=== PATIENT | female | born 1975 | race Hispanic/Latino ===

== ENCOUNTER 2018-03-04 22:42 | Emergency (ER) | payer OTHER ==
[~2018-03-04] VITALS: Ht 160 cm; Wt 88.9 kg
[2018-03-04] MEDS ORDERED: ALBUTEROL SULF 0.083% NEB SOLN 3 ML NEB NEB STA (23:13)
[2018-03-04] MEDS ORDERED: PREDNISONE 20 MG TAB PO SCH (23:15)
[2018-03-04] MEDS ORDERED: IPRATROPIUM BROMIDE 0.02% 2.5 ML NEB NEB ONE (23:15)
[2018-03-04] MEDS ORDERED: IPRATROPIUM BROMIDE 0.02% 2.5 ML NEB ONE (23:17)
[2018-03-04] MEDS ORDERED: ALBUTEROL SULF 0.083% NEB SOLN 3 ML NEB ONE (23:17)
[2018-03-04] MEDS ORDERED: PREDNISONE 20 MG TAB PO ONE (23:30)
== END 2018-03-05 00:26 | disposition home or self-care (01) ==
LOC: ER 22:42
DX: R06.00 Dyspnea, unspecified (principal); J20.9 Acute bronchitis, unspecified; J45.31 Mild persistent asthma with (acute) exacerbation
CPT/HCPCS: 94640; 99283

== ENCOUNTER 2021-12-09 17:48 | Emergency (ER) | payer OTHER ==
[~2021-12-09] VITALS: Ht 160 cm; Wt 97.5 kg
[~2021-12-09 17:48] MED LIST: ALBUTEROL0.63 MG/3 NEB; ALBUTEROL2.5 MG/3 M NEB; PREDNISONE20 MG PO; PROAIR HFA INH8.5 GM IH; ZITHROMAX1 GM PO
[2021-12-09] MEDS ORDERED: ALBUTEROL/IPRATROPIUM 3 ML NEB NEB NR (18:15)
[2021-12-09] MEDS ORDERED: METHYLPREDNISOLONE SOD SUCC 125 MG/2ML VIAL IM NR (18:15)
[2021-12-09 18:58] VITALS: BP 111/56
== END 2021-12-09 19:06 | disposition home or self-care (01) ==
LOC: UNMERGE 17:55 → MERGE 17:55 → ER 17:55
DX: J45.909 Unspecified asthma, uncomplicated (principal); R06.02 Shortness of breath; Z86.16 Personal history of COVID-19
CPT/HCPCS: 94799; 99282; J2930

== ENCOUNTER 2022-03-19 22:35 | Emergency (ER) | payer OTHER ==
[~2022-03-19] VITALS: Ht 160 cm; Wt 97.5 kg
[2022-03-20] MEDS ORDERED: PREDNISONE20 MG PO (00:19)
[2022-03-20] MEDS ORDERED: AZITHROMYCIN250 MG PO (00:19)
[2022-03-20] MEDS ORDERED: VENTOLIN HFA18 GM INH (00:19)
== END 2022-03-20 00:20 | disposition home or self-care (01) ==
LOC: ER 22:41
DX: R05.9 Cough, unspecified (principal); J06.9 Acute upper respiratory infection, unspecified; R07.89 Other chest pain; L30.9 Dermatitis, unspecified; Z20.822 Contact with and (suspected) exposure to COVID-19
CPT/HCPCS: 93005; 99283; U0002

== ENCOUNTER 2022-07-27 21:32 | Emergency (ER) | payer OTHER ==
[~2022-07-27] VITALS: Ht 160 cm; Wt 97.5 kg
[~2022-07-27 21:32] MED LIST changes: +AZITHROMYCIN250 MG PO; +VENTOLIN HFA18 GM INH
[2022-07-27 22:22] LABS: CLARITY,URINE SL CLOUDY (CLEAR); COLOR,URINE ORANGE (YELLOW); KETONES,URINE >=160 (NEGATIVE); LEUKOCYTE ESTERASE ,URINE LARGE (NEGATIVE); NITRITE,URINE POSITIVE (NEGATIVE); PROTEIN,URINE DIPSTICK 1+ (NEGATIVE); URINE UROBILINOGEN >=8 mg/dL (0.2 - 1)
[2022-07-27 22:26] LABS: BACTERIA,URINE FEW /HPF; EPITHELIAL CELLS,URINE MANY /LPF; RBC,URINE 0-5 /HPF (0-5)
[2022-07-27] MEDS ORDERED: KETOROLAC TROMETHAMINE 60 MG/2 ML VIAL IM ONE (22:45)
[2022-07-27] MEDS ORDERED: KETOROLAC TROMETHAMINE 60 MG/2 ML VIAL ONE (22:52)
[2022-07-28] MEDS ORDERED: CIPROFLOXACIN 500 MG TAB PO STA (00:57)
[2022-07-28] MEDS ORDERED: CIPRO500 MG PO (01:20)
[2022-07-28] MEDS ORDERED: ULTRAM 50MG50 MG PO (01:20)
[2022-07-28] MEDS ORDERED: ONDANSETRON ODT4 MG PO (01:20)
[2022-07-28 01:21] VITALS: BP 106/71
== END 2022-07-28 01:29 | disposition home or self-care (01) ==
LOC: ER 22:02
DX: R10.31 Right lower quadrant pain (principal); N20.0 Calculus of kidney; N12 Tubulo-interstitial nephritis, not specified as acute or chronic; K80.20 Calculus of gallbladder without cholecystitis without obstruction; M54.50 Low back pain, unspecified; N28.89 Other specified disorders of kidney and ureter; Z20.822 Contact with and (suspected) exposure to COVID-19
CPT/HCPCS: 74176; 76770; 81001; 81025; 99283; J1885; U0002

== ENCOUNTER 2022-10-30 21:19 | Emergency (ER) | payer OTHER ==
[~2022-10-30] VITALS: Ht 160 cm; Wt 97.5 kg
[~2022-10-30 21:19] MED LIST changes: +CIPRO500 MG PO; +ONDANSETRON ODT4 MG PO; +ULTRAM 50MG50 MG PO
[2022-10-30] MEDS ORDERED: AZITHROMYCIN250 MG PO (22:59)
[2022-10-30] MEDS ORDERED: PREDNISONE20 MG PO (22:59)
[2022-10-30] MEDS ORDERED: VENTOLIN HFA18 GM INH (22:59)
== END 2022-10-30 23:02 | disposition home or self-care (01) ==
LOC: ER 21:25
DX: R06.02 Shortness of breath (principal); J40 Bronchitis, not specified as acute or chronic; R05.9 Cough, unspecified; D50.9 Iron deficiency anemia, unspecified; Z20.822 Contact with and (suspected) exposure to COVID-19
CPT/HCPCS: 71046; 93005; 99283; U0002

== ENCOUNTER 2024-07-10 22:22 | Emergency (ER) | payer OTHER ==
[~2024-07-10] VITALS: Ht 157.5 cm; Wt 88.5 kg
[2024-07-10 22:29] VITALS: TEMP 98.4
[2024-07-10 23:27] LABS: CORONAVIRUS COVID-19 AG NEGATIVE (NEGATIVE); INFLUENZA A AG NEGATIVE (NEGATIVE); INFLUENZA B AG NEGATIVE (NEGATIVE)
[2024-07-10] MEDS ORDERED: DOXYCYCLINE HY100 MG PO (23:45)
[2024-07-10] MEDS ORDERED: BENZONATATE200 MG PO (23:45)
[2024-07-10] MEDS ORDERED: MEDROL4 M2 PO (23:45)
[2024-07-10 23:54] VITALS: PULSE 97; RESP 25
[2024-07-10] MEDS: DOXYCYCLINE HYCLATE TABLET 100 MG TAB PO ONE (23:54)
[2024-07-10] MEDS: DEXAMETHASONE SOD PHOS 10 MG/1 ML VIAL IM ONE (23:54)
[2024-07-11 00:31] VITALS: BP 133/78; O2SAT 98
== END 2024-07-11 00:34 | disposition home or self-care (01) ==
LOC: ER 22:39
DX: R05.9 Cough, unspecified (principal); J18.9 Pneumonia, unspecified organism; D64.9 Anemia, unspecified; J45.909 Unspecified asthma, uncomplicated; Z11.52 Encounter for screening for COVID-19
CPT/HCPCS: 71046; 87428; 99284; J1100

== ENCOUNTER 2024-08-24 23:45 | Emergency (ER) | payer OTHER ==
[~2024-08-24] VITALS: Ht 157.5 cm; Wt 88.5 kg
[~2024-08-24 23:45] MED LIST changes: +BENZONATATE200 MG PO; +DOXYCYCLINE HY100 MG PO; +MEDROL4 M2 PO
[2024-08-24 23:49] VITALS: RESP 32; TEMP 99
[2024-08-25 00:08] VITALS: PULSE 90; RESP 20; O2SAT 96
[2024-08-25] MEDS: ALBUTEROL/IPRATROPIUM 3 ML NEB NEB STA (00:08)
[2024-08-25] MEDS: PREDNISONE 20 MG TAB PO STA (00:12)
[2024-08-25 00:41] LABS: CORONAVIRUS COVID-19 AG NEGATIVE (NEGATIVE); INFLUENZA A AG NEGATIVE (NEGATIVE); INFLUENZA B AG NEGATIVE (NEGATIVE); STREPTOCOCCUS GRP A ANTIGEN NEGATIVE (NEGATIVE)
[2024-08-25 01:15] VITALS: PULSE 93
[2024-08-25 01:24] VITALS: BP 132/73; PULSE 93; RESP 22; O2SAT 99
[2024-08-25] MEDS ORDERED: ALBUTEROL2.5 MG/0.5 INH (01:57)
== END 2024-08-25 01:27 | disposition home or self-care (01) ==
LOC: ER 23:55
DX: R06.02 Shortness of breath (principal); J06.9 Acute upper respiratory infection, unspecified; R05.9 Cough, unspecified; J45.909 Unspecified asthma, uncomplicated; D64.9 Anemia, unspecified; Z11.52 Encounter for screening for COVID-19
CPT/HCPCS: 71046; 83518; 87070; 87428; 94640; 94799; 99284; J7512

== ENCOUNTER 2025-01-02 22:02 | Emergency (ER) | payer SELFPAY ==
[~2025-01-02] VITALS: Ht 157.5 cm; Wt 88.5 kg
[~2025-01-02 22:02] MED LIST changes: +ALBUTEROL2.5 MG/0.5 INH
[2025-01-02 22:10] VITALS: PULSE 81; RESP 24; TEMP 98.5
[2025-01-02] MEDS ORDERED: ALBUTEROL/IPRATROPIUM 3 ML NEB ONE (22:16)
[2025-01-02 22:26] VITALS: PULSE 84; RESP 18; O2SAT 98
[2025-01-02] MEDS: ALBUTEROL/IPRATROPIUM 3 ML NEB NEB ONE (22:26)
[2025-01-02 22:41] LABS: BASOPHILS % 0.6 % (0.0-1.0); EOSINOPHILS # (AUTO) 0.6 (0.0-0.4); EOSINOPHILS % 8.9 % (0.0-6.0); HEMATOCRIT 29.7 % (34.2-44.1); HEMOGLOBIN 8.6 g/dL (12.0-16.0); LYMPHOCYTES # (AUTO) 1.1 (1.0-3.2); LYMPHOCYTES % 15.1 % (18.0-39.1); MEAN CORPUSCULAR HEMOGLOBIN 22.5 pg (28-32); MEAN CORPUSCULAR VOLUME 77.5 fL (81-99); MONOCYTES # (AUTO) 0.8 (0.2-0.8); MONOCYTES % 10.7 % (4.4-11.3); NEUTROPHILS # (AUTO) 4.7 (2.1-6.9); NEUTROPHILS % 64.4 % (38.7-80.0); PLATELET COUNT 268 x10e3/uL (140-360); RED BLOOD COUNT 3.83 x10e6/uL (3.6-5.1); RED CELL DISTRIBUTION WIDTH 21.2 % (11.7-14.4); WHITE BLOOD COUNT 7.23 x10e3/uL (4.8-10.8)
[2025-01-02 23:10] LABS: ALBUMIN 3.5 g/dL (3.5-5.0); ANION GAP 12.4 mmol/L (8-16); BILIRUBIN,TOTAL 0.2 mg/dL (0.2-1.2); CALCIUM 8.9 mg/dL (8.4-10.2); CREATININE, SERUM 0.67 mg/dL (0.57-1.11)
[2025-01-02 23:21] LABS: POTASSIUM 3.4 mmol/L (3.5-5.1)
[2025-01-02] MEDS ORDERED: VENTOLIN HFA18 GM INH (23:47)
[2025-01-02] MEDS ORDERED: PREDNISONE50 MG PO (23:47)
[2025-01-02] MEDS ORDERED: ALBUTEROL1.25 MG/3 NEB (23:47)
[2025-01-03 00:14] VITALS: BP 119/65; PULSE 89; RESP 18; TEMP 98.2; O2SAT 98
[2025-01-03] MEDS: METHYLPREDNISOLONE SOD SUCC 125 MG/2ML VIAL IV ONE (00:14)
[2025-01-03 02:15] LABS: ANISOCYTOSIS MODERATE; HYPOCHROMASIA MODERATE; MICROCYTOSIS MODERATE; POIKILOCYTOSIS MODERATE; POLYCHROMASIA MODERATE
[2025-01-03 02:16] LABS: ELLIPTOCYTE, RBC MODERATE; OVALOCYTES FEW; RBC MORPHOLOGY COMMENT ABNORMAL
[2025-01-03 02:17] LABS: PLATELET ESTIMATE ADEQUATE; PLATELET MORPHOLOGY COMMENT FEW LARGE
== END 2025-01-03 00:16 | disposition home or self-care (01) ==
LOC: ER 22:04
DX: R06.00 Dyspnea, unspecified (principal); D64.9 Anemia, unspecified; J45.909 Unspecified asthma, uncomplicated
CPT/HCPCS: 36415; 71046; 80053; 83880; 84484; 85025; 93005; 94640; 94799; 99284; J2919